=== PATIENT | female | born 1995 | race Caucasian/White ===

== ENCOUNTER 2017-03-26 03:41 | Inpatient (IN) | payer OTHER ==
[2017-03-26 05:25] VITALS: BMI 25.2
[2017-03-26] MEDS ORDERED: DEXTROSE 5%-LACTATED RINGERS 1,000 ML IV ONE (05:30)
[2017-03-26 06:01] LABS: BASOPHIL 0.5 % (0-2.0); MCH 28.6 pg (25.7-33.7); MCHC 32.7 g/dl (32.0-36.0); MEAN CELL VOLUME 87.6 fl (80-96); MEAN PLT VOLUME 11.1 fl (7.5-11.1); NEUTROPHILS 74.8 % (42.8-82.8); PLATELET COUNT 165 K/MM3 (134-434); RDW 13.2 % (11.6-15.6)
[2017-03-26 06:18] LABS: INR 0.92 (0.82-1.09); PROTHROMBIN TIME (PATIENT) 10.1 SEC (9.98-11.88)
[2017-03-26 06:21] LABS: ACTIVATED PTT 31.1 SECONDS (26.9-34.4)
[2017-03-26 06:23] LABS: CALCIUM 9.4 mg/dL (8.5-10.1); COCKROFT - GAULT 190.4595; CREATININE 0.5 mg/dL (0.55-1.02)
[2017-03-26] MEDS ORDERED: DEXTROSE 5%-LACTATED RINGERS 1,000 ML IV SCH (06:36)
[2017-03-26] MEDS ORDERED: BUTORPHANOL TARTRATE 1 MG/ML VIAL IVPUSH ONE (07:46)
[2017-03-26] MEDS ORDERED: PROMETHAZINE HCL 25 MG/1 ML VIAL IVPUSH ONE (07:46)
--- NOTE | 2017-03-26 07:56 | HP ---
Past Medical History - Primary Care Physician PCP:: Riaz Ma - Admission Chief Complaint: 40.2 weeks,labor, rom History of Present Illness: 21 yo f edc by sono 03/24/17 with rom [id number] am in labor cx 4 cm,100 vx -2 mr, clear , fhr cat 1, regular contraction History Source: Patient Limitations to Obtaining History: No Limitations - Past Medical History ...: 1 ...Para: 0 ...Term: 0 ...: 0 ...Spon : 0 ...Induced : 0 ...Multiple Gestation: 0 ...LMP: 05/23/16 ... Weeks Gestation by Dates: 42.3 ...EDC by Dates: 03/09/17 ...EDC by Sono: 03/24/17 - Past Surgical History Hx Myomectomy: No Hx Transabdominal Cerclage: No - Smoking History Smoking history: Never smoked Have you smoked in the past 12 months: No - Alcohol/Substance Use Hx Alcohol Use: No - Social History History of Recent Travel: No Home Medications - Allergies Allergies/Adverse Reactions: Allergies Allergy/AdvReac Type Severity Reaction Status Date / Time No Known Allergies Allergy Verified 03/26/17 05:04 - Home Medications Home Medications: Ambulatory Orders Vitamins (Sjr) - 1 tab PO DAILY 03/26/17 Review of Systems - Review of Systems Constitutional: reports: No Symptoms Eyes: reports: No Symptoms HENT: reports: No Symptoms Neck: reports: No Symptoms Cardiovascular: reports: No Symptoms Gastrointestinal: reports: No Symptoms Genitourinary: reports: No Symptoms Breasts: reports: No Symptoms Reported Musculoskeletal: reports: No Symptoms Integumentary: reports: No Symptoms Neurological: reports: No Symptoms, Seizure Hematology/Lymphatic: reports: No Symptoms Psychiatric: reports: No Symptoms Physical Exam - Maternity Vital Signs: Vital Signs Temperature 98.3 F 03/26/17 06:00 Pulse Rate 90 03/26/17 06:00 Respiratory Rate 20 03/26/17 06:00 Blood Pressure 121/71 03/26/17 06:00 O2 Sat by Pulse Oximetry (%) Constitutional: Yes: Well Nourished, No Distress, Calm Eyes: Yes: WNL, Conjunctiva Clear, EOM Intact HENT: Yes: WNL, Atraumatic, Normocephalic Neck: Yes: WNL, Supple, Trachea Midline Cardiovascular: Yes: WNL, Regular Rate and Rhythm Breast(s): Yes: WNL - Abdominal Exam/OB Fundal Height: 38 Number of Fetuses: Single Presentation: Vertex Contractions: Yes Regularity: Regular Intensity: Mod/Strong Monitor Mode: External Heart Rate Location: LLQ Accelerations: Uniform Decelerations: None - Vaginal Exam/OB Vaginal Bleediing: No Speculum Exam: No Dilatation (cm): 4cm Effacement (%): 100 Amniotic Membrane Status: Ruptured Nitrazine Test: Positive Amniotic Fluid: Yes: Clear Presentation: Vertex/Position Station: -2 - Physical Exam Edema: Yes Edema: LLE: Trace, RLE: Trace Deep Tendon Reflex Grade: Normal +2 ...Motor Strength: WNL Psychiatric: Yes: WNL - Labs Lab Results: CBC, BMP 03/26/17 05:30 03/26/17 05:30 Hemorrhage Risk Assessment - Risk Factors High Risk Factors: Yes: None Risk Score: 0 Risk Level: Low Risk Problem List - Problems (1) Post term over 40 weeks Code(s): O48.0 - POST-TERM (2) membrane rupture Code(s): NPO9042 - (3) Labor established Code(s): OBR6502 - Assessment/Plan plan admit, fhm, pain management
[2017-03-26] MEDS ORDERED: BISACODYL 10 MG SUPP.RECT RC PRN (10:44)
[2017-03-26] MEDS ORDERED: BENZOCAINE 20% 57 GM BOTTLE TP PRN (10:44)
[2017-03-26] MEDS ORDERED: oxyCODONE HCL 5 MG TABLET PO PRN (10:44)
[2017-03-26] MEDS ORDERED: BENZOCAINE 28 GM HEMORRHOIDAL OINTMENT TP PRN (10:44)
[2017-03-26] MEDS ORDERED: METHYLERGONOVINE MALEATE 0.2 MG/1 ML AMP IM PRN (10:44)
[2017-03-26] MEDS ORDERED: WITCH HAZEL 50% (TUCKS) 40 PAD/JAR PAD TP PRN (10:44)
[2017-03-26] MEDS ORDERED: D5W-LR W/ 20 UNITS OXYTOCIN 1,000 ML IV SCH (10:45)
[2017-03-26] MEDS: IBUPROFEN 600 MG TABLET (FP) PO PRN ×2 (13:20→21:58)
[2017-03-26] MEDS: ACETAMINOPHEN 325 MG TABLET (FP) PO PRN ×2 (13:21→21:58)
[2017-03-26] MEDS: PRENATAL VITAMINS W/ FOLIC ACID TABLET (FP) PO SCH (14:41)
[2017-03-26] MEDS: FERROUS SO4 325 MG TABLET (FP) PO SCH (21:58)
[2017-03-27] MEDS: ACETAMINOPHEN 325 MG TABLET (FP) PO PRN ×2 (05:48→21:05)
[2017-03-27] MEDS: IBUPROFEN 600 MG TABLET (FP) PO PRN ×2 (05:48→21:04)
--- NOTE | 2017-03-27 07:22 | PN ---
Progress Note (short form) - Note Progress Note: ppd 2 doing well, no c/o CBC, BMP 03/26/17 05:30 03/26/17 05:30 Last Vital Signs Temp Pulse Resp BP Pulse Ox 98.8 F 85 20 103/64 03/27/17 05:58 03/27/17 05:58 03/27/17 05:58 03/27/17 05:58 abdomen soft , no distension, ,uterus firm, non tender lochia mild. no calf tenderness plan ambulate, cbc Problem List - Problems (1) Post term over 40 weeks Code(s): O48.0 - POST-TERM (2) membrane rupture Code(s): [id number] - (3) Labor established Code(s): XLX0422 -
[2017-03-27 07:51] LABS: BASOPHIL 0.4 % (0-2.0); EOSINOPHIL 0.8 % (0-4.5); MCH 28.9 pg (25.7-33.7); MCHC 32.8 g/dl (32.0-36.0); MEAN CELL VOLUME 87.9 fl (80-96); MEAN PLT VOLUME 11.2 fl (7.5-11.1); NEUTROPHILS 75.5 % (42.8-82.8); PLATELET COUNT 133 K/MM3 (134-434); RDW 13.2 % (11.6-15.6); WHITE BLOOD COUNT 14.6 K/mm3 (4.0-10.0)
[2017-03-27] MEDS: PRENATAL VITAMINS W/ FOLIC ACID TABLET (FP) PO SCH ×2 (10:24→11:58)
[2017-03-27] MEDS: FERROUS SO4 325 MG TABLET (FP) PO SCH ×2 (10:24→21:04)
[2017-03-27] MEDS ORDERED: SENNOSIDES/DOCUSATE COMBO (SENNA PLUS) TABLET (UD) PO PRN (22:00)
--- NOTE | 2017-03-28 08:08 | PN ---
Post Progress Note - Subjective Subjective: no complins Post Day: 2 Type of Delivery: Vital Signs: Vital Signs Temperature 97.8 F 03/27/17 22:00 Pulse Rate 95 H 03/27/17 22:00 Respiratory Rate 20 03/27/17 22:00 Blood Pressure 125/67 03/27/17 22:00 O2 Sat by Pulse Oximetry (%) Breast Exam: Yes: Soft. No: Engorged Uterus: Yes: Fundus Firm, Fundus below umbilicus, Non-tender Lochia: Yes: Rubra Lochia, amount: Moderate Extremities: Yes: Calves non-tender Perineum: Yes: Intact Activity: Ambulating - Labs Labs: CBC WBC 14.6 K/mm3 (4.0-10.0) H 03/27/17 06:45 RBC 3.57 M/mm3 (3.60-5.2) L D 03/27/17 06:45 Hgb 10.3 GM/dL (10.7-15.3) L D 03/27/17 06:45 Hct 31.4 % (32.4-45.2) L D 03/27/17 06:45 MCV 87.9 fl (80-96) 03/27/17 06:45 MCHC 32.8 g/dl (32.0-36.0) 03/27/17 06:45 RDW 13.2 % (11.6-15.6) 03/27/17 06:45 Plt Count 133 K/MM3 (134-434) L 03/27/17 06:45 MPV 11.2 fl (7.5-11.1) H 03/27/17 06:45 Neutrophils % 75.5 % (42.8-82.8) 03/27/17 06:45 Lymphocytes % 14.9 % (8-40) 03/27/17 06:45 Monocytes % 8.4 % (3.8-10.2) 03/27/17 06:45 Eosinophils % 0.8 % (0-4.5) 03/27/17 06:45 Basophils % 0.4 % (0-2.0) 03/27/17 06:45 Assessment/Plan stable. discharge today
[2017-03-28 08:59] VITALS: BP 128/80; PULSE 103; TEMP 98.4
[2017-03-28] MEDS: FERROUS SO4 325 MG TABLET (FP) PO SCH (09:35)
[2017-03-28] MEDS: PRENATAL VITAMINS W/ FOLIC ACID TABLET (FP) PO SCH ×2 (09:35→10:25)
[2017-03-28] MEDS: ACETAMINOPHEN 325 MG TABLET (FP) PO PRN (09:35)
[2017-03-28] MEDS: IBUPROFEN 600 MG TABLET (FP) PO PRN (09:35)
--- NOTE | 2017-03-30 20:16 | DS ---
Physical Exam-[employer] Vital Signs: Vital Signs Temperature 98.4 F 03/28/17 08:58 Pulse Rate 103 H 03/28/17 08:58 Respiratory Rate 20 03/28/17 08:58 Blood Pressure 128/80 03/28/17 08:58 O2 Sat by Pulse Oximetry (%) Constitutional: Yes: Well Nourished, No Distress, Calm Eyes: Yes: WNL, Conjunctiva Clear, EOM Intact HENT: Yes: WNL, Atraumatic, Normocephalic Neck: Yes: WNL, Supple, Trachea Midline Cardiovascular: Yes: WNL, Regular Rate and Rhythm Respiratory: Yes: WNL, Regular, CTA Bilaterally Gastrointestinal: Yes: WNL ...Rectal Exam: Yes: WNL Renal/: Yes: WNL External Genitalia: Yes: Normal ....Post : Yes: Uterus firm, Uterus non-tender, Slight lochia rubra Breast(s): Yes: WNL Musculoskeletal: Yes: WNL Extremities: Yes: WNL Edema: LLE: Trace, RLE: Trace Integumentary: Yes: WNL Neurological: Yes: WNL, Alert, Oriented ...Motor Strength: WNL Psychiatric: Yes: WNL, Alert, Oriented Labs: CBC, BMP 03/27/17 06:45 03/26/17 05:30 Delivery - Delivery Vaginal Delivery: Spontaneous (nocomplication) Type of Anesthesia: Local Episiotomy/Laceration: Midline EBL (cc): 300 Delivery, Single - Stages of Labor Date 1st Stage Initiatied: 03/26/17 Time 1st Stage Initiated: 02:00 Date 2nd Stage Initiated: 03/26/17 Time 2nd Stage Initiated: 10:05 Date of Delivery: 03/26/17 Time of Delivery: 10:24 Time Placenta Delivered: 10:30 Placenta: Yes: Spontaneous - Condition of Infant Manager Harbor/Manager Quantitative Present: No Gender: Female Weight: 7 lb 3 oz Position: Left, OA Total Hours ROM (Hrs/Mins): 5H55M - 1 Minute Total Score: 9 5 Minutes Total Score: 9 - [place] Feeding Plan Initial Plan: Elected not to breastfeed exclusively throughout hospitalization Discharge Summary Reason For Visit: LABOR ADMIT Procedures: Principal: Condition: Good - Instructions Diet, Activity, Other Instructions: regular diet, follow up [facility] care 4 weeks call [facility] for appointment. [phone] Referrals: Riaz Ma MD [Staff Physician] - Disposition: HOME - Home Medications Comprehensive Discharge Medication List: Ambulatory Orders Vitamins (Sjr) - 1 tab PO DAILY 03/26/17 Ibuprofen [Motrin -] 600 mg PO QID #28 tablet 03/27/17
== END 2017-03-28 14:30 | disposition home or self-care (01) | DRG 560 ==
LOC: JDEL 03:41 → JLDR 05:00 → J3W 12:16
PROVIDERS: ADMIT Obstetrics & Gynecology; ATTEND Obstetrics & Gynecology
PROC: 10E0XZZ Delivery of Products of Conception, External Approach (ICD-10-PCS; principal; 2017-03-26)
PROC: 0W8NXZZ Division of Female Perineum, External Approach (ICD-10-PCS; 2017-03-26)
DX: O48.0 Post-term pregnancy (principal); Z3A.40 40 weeks gestation of pregnancy; Z37.0 Single live birth
CPT/HCPCS: 36415; 59409; 80048; 85025; 85610; 85730; 86593; 86850; 86900; 86901